=== PATIENT | female | born 1985 | race Caucasian/White ===

== ENCOUNTER 2021-01-09 12:34 | Emergency (ER) | payer SELFPAY ==
[2021-01-09] MEDS ORDERED: Lorazepam 2 MG/ML VIAL ONE (13:16)
== END 2021-01-09 14:38 | disposition home or self-care (01) ==
LOC: MADERS 12:34
DX: F41.9 Anxiety disorder, unspecified (principal); R07.2 Precordial pain; K21.9 Gastro-esophageal reflux disease without esophagitis; F17.200 Nicotine dependence, unspecified, uncomplicated
CPT/HCPCS: 96372; 99284; J2060